=== PATIENT | female | born 1945 | race Caucasian/White ===

== ENCOUNTER 2018-02-04 10:12 | Inpatient (IN) ==
[2018-02-04] MEDS ORDERED: ALBUTEROL/IPRATROPIUM 3 ML NEB RESP TX STA (10:26)
[2018-02-04] MEDS ORDERED: LEVOFLOXACIN INJ 500 MG in PREMIX 1 EACH IV STA (10:26)
[2018-02-04] MEDS ORDERED: methylPREDNISolone SOD SUC 125 MG/2 ML VIAL IV STA (10:26)
[2018-02-04] MEDS ORDERED: ALBUTEROL 2.5 MG/3 ML NEB RESP TX SCH (10:30)
[2018-02-04] MEDS ORDERED: methylPREDNISolone SOD SUC 125 MG/2 ML VIAL ONE (10:36)
[2018-02-04 10:38] LABS: Basophils # 0.1 10*3/uL (0.0-0.2); Basophils % 0.4 % (0.0-0.8); Eosinophils # 0.1 10*3/uL (0.0-0.87); Eosinophils % 0.3 % (0.00-10.9); Hematocrit 42.1 VOL% (35.7-47.0); Hemoglobin 13.4 GM/DL (12.0-16.0); Immature Granulocytes % 0.6 %; Lymphocytes # 4.2 10*3/uL (1.4-4.0); Lymphocytes % 24.6 % (21.3-54.2); Mean Corpuscular HGB Conc 31.8 GM/DL (32-36); Mean Corpuscular Hemoglobin 32 PG (27-34); Mean Corpuscular Volume 99.1 FL (87-102); Mean Platelet Volume 10.7 FL (9.6-12.0); Neutrophils # 11.7 10*3/uL (1.4-7.4); Neutrophils % 68.1 % (38.7-73.9); Platelet Count 441 T/CUMM (130-400); Red Blood Count 4.25 MC/CUMM (3.8-5.5); Red Cell Distribution Width 12.3 % (9.3-17.3); White Blood Count 17.2 T/CUMM (4-12)
[2018-02-04 11:05] LABS: Lactic Acid 2.5 MMOL/L (0.4-2.0)
[2018-02-04 11:07] LABS: Albumin 3.1 G/DL (3.4-5.0); Bilirubin,Total 0.4 MG/DL (0.2-1.0); Calcium 8.9 MG/DL (8.5-10.1); Osmolality,Calculated 276.1 MOS/KG (273-304); Potassium 4.8 MMOL/L (3.5-5.1); Total Protein 7.3 G/DL (6.4-8.3)
[2018-02-04 11:11] LABS: Troponin I Only 0.151 NG/ML (0.00-0.045)
[2018-02-04] MEDS ORDERED: FUROSEMIDE 40 MG/4 ML VIAL IV STA (11:11)
[2018-02-04] MEDS ORDERED: LEVOFLOXACIN INJ 100 ML IV ONE (11:12)
[2018-02-04] MEDS ORDERED: FUROSEMIDE 40 MG/4 ML VIAL ONE (11:55)
[2018-02-04 12:18] LABS: ABG Base Excess -2.1 MMOL/L (-2.5-2.5); ABG HCO3 22.3 MMOL/L (20-26); ABG Oxygen Saturation 82.2 % (95-100); ABG PO2 60.7 MM HG (80-95); ABG TCO2 26.8 MMOL/L (23-27)
[2018-02-04 12:21] LABS: ABG PCO2 80.2 MM HG (35-48); ABG PH 7.173 (7.35-7.45)
[2018-02-04 12:33] LABS: Apearance,Urine Slightly Hazy (Clear); Bacteria,Urine Occasional /HPF (Few); Bilirubin,Urine Negative (Negative); Blood, Urine Small mg/dL (Negative); Glucose,Urine (UA) 50 mg/dL (Negative); Ketones,Urine 20 mg/dL (Negative); Mucus,Urine Occasional /LPF (Occasional); Nitrite,Urine Negative (Negative); Protein,Urine 30 MG/DL; RBC,Urine 3 /HPF (0-4); Squamous Epithelial Cell,Urine Occasional /HPF (0-10); Urine Color Yellow (Yellow); Urine Specific Gravity 1.014 (1.001-1.035); Urine Urobilinogen < 2.0 EU/DL (0.2-1.0); WBC,Urine <1 /HPF (0-6)
[2018-02-04] MEDS ORDERED: MORPHINE 4 MG/1 ML VIAL IV PRN (13:08)
[2018-02-04] MEDS ORDERED: ONDANSETRON 4 MG/2 ML VIAL IV PRN (13:08)
[2018-02-04] MEDS ORDERED: ALBUTEROL 2.5 MG/3 ML NEB RESP TX PRN (13:16)
[2018-02-04] MEDS ORDERED: METOPROLOL TARTRATE 5 MG/5 ML VIAL IV PRN (13:20)
[2018-02-04] MEDS: DEXTROSE 5% NACL 0.45% 1,000 ML IV SCH (14:32)
[2018-02-04] MEDS: methylPREDNISolone SOD SUC 40 MG/1 ML VIAL IV SCH ×2 (14:50→21:01)
[2018-02-04 14:53] LABS: Troponin I Only 0.215 NG/ML (0.00-0.045)
[2018-02-04] MEDS: methIMAzole 5 MG TABLET PO SCH (14:53)
[2018-02-04] MEDS: CLOPIDOGREL 75 MG TABLET PO SCH (14:54)
[2018-02-04] MEDS: PANTOPRAZOLE 40 MG VIAL IV SCH (14:54)
[2018-02-04] MEDS: BUDESONIDE/FORMOTEROL 160-4.5 INHALER 6 GM INH SCH ×2 (15:06→21:01)
[2018-02-04 15:22] LABS: Pt O2 Delivery Device BIPAP
[2018-02-04] MEDS: cefTRIAXone 2,000 MG in SYRINGE 1 EACH IV SCH (15:52)
[2018-02-04] MEDS: AZITHROMYCIN INJ 500 MG in SODIUM CHLORIDE 0.9% 250 ML IV SCH (15:57)
[2018-02-04 16:08] LABS: ABG Base Excess 3.4 MMOL/L (-2.5-2.5); ABG HCO3 30.1 MMOL/L (20-26); ABG Oxygen Saturation 90.8 % (95-100); ABG PCO2 55.5 MM HG (35-48); ABG PH 7.352 (7.35-7.45); ABG PO2 65.7 MM HG (80-95); ABG TCO2 31.8 MMOL/L (23-27)
[2018-02-04 16:52] LABS: Troponin I Only 0.248 NG/ML (0.00-0.045)
[2018-02-04] MEDS: ALBUTEROL/IPRATROPIUM 3 ML NEB RESP TX SCH (19:13)
[2018-02-04 19:39] LABS: Troponin I Only 0.19 NG/ML (0.00-0.045)
[2018-02-04] MEDS: ENOXAPARIN 40 MG/0.4 ML SYRINGE SUBCUT SCH (21:01)
[2018-02-05] MEDS: methylPREDNISolone SOD SUC 40 MG/1 ML VIAL IV SCH ×4 (02:00→23:34)
[2018-02-05] MEDS: DEXTROSE 5% NACL 0.45% 1,000 ML IV SCH (02:08)
[2018-02-05 03:56] LABS: ABG Base Excess 5.9 MMOL/L (-2.5-2.5); ABG HCO3 30.9 MMOL/L (20-26); ABG Oxygen Saturation 96.5 % (95-100); ABG PH 7.436 (7.35-7.45); ABG PO2 88.4 MM HG (80-95); ABG TCO2 32.4 MMOL/L (23-27); Allen Test Positive; Pt O2 Delivery Device CPAP
[2018-02-05 06:06] LABS: Hematocrit 32.4 VOL% (35.7-47.0); Hemoglobin 10.6 GM/DL (12.0-16.0); Immature Granulocytes % 0.4 %; Immature Granulocytes Absolute 0.02 #; Lymphocytes # 0.6 10*3/uL (1.4-4.0); Mean Corpuscular HGB Conc 32.7 GM/DL (32-36); Mean Corpuscular Hemoglobin 31 PG (27-34); Mean Corpuscular Volume 93.9 FL (87-102); Mean Platelet Volume 11.2 FL (9.6-12.0); Monocytes # 0.1 10*3/uL (0.11-0.8); Monocytes % 3.1 % (1.7-12.7); Neutrophils # 3.8 10*3/uL (1.4-7.4); Neutrophils % 82.5 % (38.7-73.9); Platelet Count 253 T/CUMM (130-400); Red Blood Count 3.45 MC/CUMM (3.8-5.5); Red Cell Distribution Width 12.1 % (9.3-17.3); White Blood Count 4.6 T/CUMM (4-12)
[2018-02-05 07:07] LABS: Albumin 2.6 G/DL (3.4-5.0); Bilirubin,Total 0.6 MG/DL (0.2-1.0); Calcium 8.2 MG/DL (8.5-10.1); Osmolality,Calculated 277.8 MOS/KG (273-304); Potassium 4.2 MMOL/L (3.5-5.1); Risk Ratio 3.13; Thyroid Stimulating Hormone 0.031 uIU/ml (0.358-3.74); Total Protein 5.8 G/DL (6.4-8.3); VLDL CHOLESTEROL 15.2 MG/DL
[2018-02-05] MEDS: ALBUTEROL/IPRATROPIUM 3 ML NEB RESP TX SCH ×4 (07:23→18:44)
[2018-02-05] MEDS ORDERED: MAGNESIUM SULF RIDER 2 GM in PREMIX 1 EACH IV ONE (07:58)
[2018-02-05] MEDS: methIMAzole 5 MG TABLET PO SCH (09:11)
[2018-02-05] MEDS: CLOPIDOGREL 75 MG TABLET PO SCH (09:11)
[2018-02-05] MEDS: BUDESONIDE/FORMOTEROL 160-4.5 INHALER 6 GM INH SCH ×2 (09:12→21:11)
[2018-02-05] MEDS: PANTOPRAZOLE 40 MG VIAL IV SCH (09:15)
[2018-02-05] MEDS ORDERED: BUDESONIDE/FORMOTEROL 160-4.5 INHALER 6 GM INH SCH (13:30)
[2018-02-05] MEDS: ESCITALOPRAM 10 MG TABLET PO SCH (13:34)
[2018-02-05] MEDS: ATENOLOL 25 MG TABLET PO SCH (13:35)
[2018-02-05] MEDS: MONTELUKAST 10 MG TABLET PO SCH (13:35)
[2018-02-05] MEDS ORDERED: CLORAZEPATE 3.75 MG TABLET PO PRN (15:52)
[2018-02-05] MEDS: cefTRIAXone 2,000 MG in SYRINGE 1 EACH IV SCH (17:50)
[2018-02-05] MEDS: AZITHROMYCIN INJ 500 MG in SODIUM CHLORIDE 0.9% 250 ML IV SCH (17:51)
[2018-02-05] MEDS: ENOXAPARIN 40 MG/0.4 ML SYRINGE SUBCUT SCH (21:11)
[2018-02-05] MEDS: PRAVASTATIN 40 MG TABLET PO SCH (21:11)
[2018-02-06] MEDS: ALBUTEROL/IPRATROPIUM 3 ML NEB RESP TX SCH ×4 (02:05→19:56)
[2018-02-06] MEDS: methylPREDNISolone SOD SUC 40 MG/1 ML VIAL IV SCH ×2 (04:12→09:23)
[2018-02-06] MEDS: ATENOLOL 25 MG TABLET PO SCH (08:28)
[2018-02-06] MEDS: methIMAzole 5 MG TABLET PO SCH (08:28)
[2018-02-06] MEDS: CLOPIDOGREL 75 MG TABLET PO SCH (08:28)
[2018-02-06] MEDS: MONTELUKAST 10 MG TABLET PO SCH (08:28)
[2018-02-06] MEDS: ESCITALOPRAM 10 MG TABLET PO SCH (08:29)
[2018-02-06] MEDS: PANTOPRAZOLE 40 MG VIAL IV SCH (08:29)
[2018-02-06] MEDS: BUDESONIDE/FORMOTEROL 160-4.5 INHALER 6 GM INH SCH ×2 (08:35→21:14)
[2018-02-06] MEDS ORDERED: MAGNESIUM SULF RIDER 4 GM in PREMIX 1 EACH IV PRN (10:48)
[2018-02-06] MEDS ORDERED: MAGNESIUM SULF RIDER 2 GM in PREMIX 1 EACH IV PRN (10:48)
[2018-02-06] MEDS ORDERED: ZINC OXIDE PASTE 113 GM TUBE TOP PRN (14:05)
[2018-02-06] MEDS ORDERED: ZALEPLON 5 MG CAPSULE PO PRN (14:31)
[2018-02-06] MEDS: cefTRIAXone 2,000 MG in SYRINGE 1 EACH IV SCH (14:49)
[2018-02-06] MEDS: predniSONE 20 MG TABLET PO SCH ×2 (14:49→21:14)
[2018-02-06] MEDS: AZITHROMYCIN INJ 500 MG in SODIUM CHLORIDE 0.9% 250 ML IV SCH (15:34)
[2018-02-06] MEDS: ENOXAPARIN 40 MG/0.4 ML SYRINGE SUBCUT SCH (21:14)
[2018-02-06] MEDS: PRAVASTATIN 40 MG TABLET PO SCH (21:14)
[2018-02-07] MEDS: ALBUTEROL/IPRATROPIUM 3 ML NEB RESP TX SCH ×4 (00:50→20:14)
[2018-02-07 05:35] LABS: Hematocrit 33.8 VOL% (35.7-47.0); Hemoglobin 10.8 GM/DL (12.0-16.0); Immature Granulocytes % 0.6 %; Immature Granulocytes Absolute 0.07 #; Lymphocytes # 0.8 10*3/uL (1.4-4.0); Lymphocytes % 7.2 % (21.3-54.2); Mean Corpuscular Hemoglobin 31 PG (27-34); Mean Corpuscular Volume 95.5 FL (87-102); Mean Platelet Volume 11.1 FL (9.6-12.0); Monocytes # 0.5 10*3/uL (0.11-0.8); Monocytes % 4.2 % (1.7-12.7); Neutrophils # 9.7 10*3/uL (1.4-7.4); Platelet Count 297 T/CUMM (130-400); Red Blood Count 3.54 MC/CUMM (3.8-5.5); Red Cell Distribution Width 12.3 % (9.3-17.3)
[2018-02-07 06:03] LABS: Calcium 8.7 MG/DL (8.5-10.1); Osmolality,Calculated 285.4 MOS/KG (273-304); Potassium 4.2 MMOL/L (3.5-5.1)
[2018-02-07] MEDS: methIMAzole 5 MG TABLET PO SCH (09:33)
[2018-02-07] MEDS: ESCITALOPRAM 10 MG TABLET PO SCH (09:34)
[2018-02-07] MEDS: MONTELUKAST 10 MG TABLET PO SCH (09:35)
[2018-02-07] MEDS: CLOPIDOGREL 75 MG TABLET PO SCH (09:35)
[2018-02-07] MEDS: ATENOLOL 25 MG TABLET PO SCH (09:35)
[2018-02-07] MEDS: predniSONE 20 MG TABLET PO SCH ×2 (09:35→20:15)
[2018-02-07] MEDS: PANTOPRAZOLE 40 MG VIAL IV SCH (09:35)
[2018-02-07] MEDS: BUDESONIDE/FORMOTEROL 160-4.5 INHALER 6 GM INH SCH ×2 (09:43→20:19)
[2018-02-07] MEDS: THEOPHYLLINE ER (24 HR) 400 MG CAPSULE PO SCH (09:46)
[2018-02-07] MEDS: cefTRIAXone 2,000 MG in SYRINGE 1 EACH IV SCH (17:30)
[2018-02-07] MEDS: AZITHROMYCIN INJ 500 MG in SODIUM CHLORIDE 0.9% 250 ML IV SCH (17:35)
[2018-02-07] MEDS: ACETAMINOPHEN 325 MG TABLET PO PRN (20:17)
[2018-02-07] MEDS: ENOXAPARIN 40 MG/0.4 ML SYRINGE SUBCUT SCH (20:18)
[2018-02-07] MEDS: PRAVASTATIN 40 MG TABLET PO SCH (20:18)
[2018-02-08] MEDS: ALBUTEROL/IPRATROPIUM 3 ML NEB RESP TX SCH ×4 (01:40→19:36)
[2018-02-08 06:58] LABS: Basophils % 0.1 % (0.0-0.8); Eosinophils % 0.1 % (0.00-10.9); Hematocrit 36.7 VOL% (35.7-47.0); Hemoglobin 11.7 GM/DL (12.0-16.0); Immature Granulocytes % 0.5 %; Immature Granulocytes Absolute 0.05 #; Lymphocytes # 2.1 10*3/uL (1.4-4.0); Lymphocytes % 18.7 % (21.3-54.2); Mean Corpuscular HGB Conc 31.9 GM/DL (32-36); Mean Corpuscular Hemoglobin 31 PG (27-34); Mean Corpuscular Volume 97.1 FL (87-102); Mean Platelet Volume 11.5 FL (9.6-12.0); Monocytes % 9.4 % (1.7-12.7); Neutrophils # 7.9 10*3/uL (1.4-7.4); Neutrophils % 71.2 % (38.7-73.9); Platelet Count 347 T/CUMM (130-400); Red Blood Count 3.78 MC/CUMM (3.8-5.5); Red Cell Distribution Width 12.2 % (9.3-17.3)
[2018-02-08 07:30] LABS: Calcium 8.9 MG/DL (8.5-10.1); Osmolality,Calculated 276.7 MOS/KG (273-304); Potassium 4.3 MMOL/L (3.5-5.1)
[2018-02-08] MEDS: ACETAMINOPHEN 325 MG TABLET PO PRN (08:34)
[2018-02-08] MEDS: MONTELUKAST 10 MG TABLET PO SCH (08:35)
[2018-02-08] MEDS: predniSONE 20 MG TABLET PO SCH (08:35)
[2018-02-08] MEDS: CLOPIDOGREL 75 MG TABLET PO SCH (08:35)
[2018-02-08] MEDS: methIMAzole 5 MG TABLET PO SCH (08:36)
[2018-02-08] MEDS: ATENOLOL 25 MG TABLET PO SCH (08:36)
[2018-02-08] MEDS: THEOPHYLLINE ER (24 HR) 400 MG CAPSULE PO SCH (08:39)
[2018-02-08] MEDS: ESCITALOPRAM 10 MG TABLET PO SCH (08:39)
[2018-02-08] MEDS: BUDESONIDE/FORMOTEROL 160-4.5 INHALER 6 GM INH SCH ×2 (08:41→20:28)
[2018-02-08] MEDS: PANTOPRAZOLE 40 MG VIAL IV SCH (08:44)
[2018-02-08] MEDS: cefTRIAXone 2,000 MG in SYRINGE 1 EACH IV SCH (15:05)
[2018-02-08] MEDS: AZITHROMYCIN INJ 500 MG in SODIUM CHLORIDE 0.9% 250 ML IV SCH (15:13)
[2018-02-08] MEDS: ENOXAPARIN 40 MG/0.4 ML SYRINGE SUBCUT SCH (20:27)
[2018-02-08] MEDS: PRAVASTATIN 40 MG TABLET PO SCH (20:27)
[2018-02-09] MEDS: ALBUTEROL/IPRATROPIUM 3 ML NEB RESP TX SCH ×4 (02:10→19:52)
[2018-02-09] MEDS: ESCITALOPRAM 10 MG TABLET PO SCH (09:02)
[2018-02-09] MEDS: predniSONE 20 MG TABLET PO SCH (09:02)
[2018-02-09] MEDS: methIMAzole 5 MG TABLET PO SCH (09:02)
[2018-02-09] MEDS: BUDESONIDE/FORMOTEROL 160-4.5 INHALER 6 GM INH SCH ×2 (09:03→20:40)
[2018-02-09] MEDS: THEOPHYLLINE ER (24 HR) 400 MG CAPSULE PO SCH (09:03)
[2018-02-09] MEDS: PANTOPRAZOLE 40 MG VIAL IV SCH (09:03)
[2018-02-09] MEDS: MONTELUKAST 10 MG TABLET PO SCH (09:03)
[2018-02-09] MEDS: CLOPIDOGREL 75 MG TABLET PO SCH (09:03)
[2018-02-09] MEDS: ATENOLOL 25 MG TABLET PO SCH (09:04)
[2018-02-09] MEDS ORDERED: ASPIRIN EC 81 MG TABLET PO SCH (11:30)
[2018-02-09] MEDS: cefTRIAXone 2,000 MG in SYRINGE 1 EACH IV SCH (15:34)
[2018-02-09] MEDS: AZITHROMYCIN INJ 500 MG in SODIUM CHLORIDE 0.9% 250 ML IV SCH (15:34)
[2018-02-09] MEDS: ACETAMINOPHEN 325 MG TABLET PO PRN (19:39)
[2018-02-09] MEDS: PRAVASTATIN 40 MG TABLET PO SCH (20:40)
[2018-02-09] MEDS: ENOXAPARIN 40 MG/0.4 ML SYRINGE SUBCUT SCH (20:40)
[2018-02-10] MEDS: ALBUTEROL/IPRATROPIUM 3 ML NEB RESP TX SCH ×4 (00:23→19:40)
[2018-02-10 05:25] LABS: Basophils % 0.1 % (0.0-0.8); Eosinophils # 0.1 10*3/uL (0.0-0.87); Eosinophils % 1.1 % (0.00-10.9); Hematocrit 32.6 VOL% (35.7-47.0); Hemoglobin 10.3 GM/DL (12.0-16.0); Immature Granulocytes % 0.9 %; Immature Granulocytes Absolute 0.08 #; Lymphocytes # 2.4 10*3/uL (1.4-4.0); Lymphocytes % 26.7 % (21.3-54.2); Mean Corpuscular HGB Conc 31.6 GM/DL (32-36); Mean Corpuscular Hemoglobin 31 PG (27-34); Mean Corpuscular Volume 96.7 FL (87-102); Mean Platelet Volume 11.4 FL (9.6-12.0); Monocytes # 0.8 10*3/uL (0.11-0.8); Monocytes % 8.8 % (1.7-12.7); Neutrophils # 5.6 10*3/uL (1.4-7.4); Neutrophils % 62.4 % (38.7-73.9); Platelet Count 329 T/CUMM (130-400); Red Blood Count 3.37 MC/CUMM (3.8-5.5); Red Cell Distribution Width 12.1 % (9.3-17.3)
[2018-02-10 05:50] LABS: Calcium 8.5 MG/DL (8.5-10.1); Osmolality,Calculated 280.3 MOS/KG (273-304)
[2018-02-10] MEDS: MONTELUKAST 10 MG TABLET PO SCH (08:59)
[2018-02-10] MEDS: THEOPHYLLINE ER (24 HR) 400 MG CAPSULE PO SCH (08:59)
[2018-02-10] MEDS: predniSONE 20 MG TABLET PO SCH (09:00)
[2018-02-10] MEDS: ESCITALOPRAM 10 MG TABLET PO SCH (09:00)
[2018-02-10] MEDS: methIMAzole 5 MG TABLET PO SCH (09:00)
[2018-02-10] MEDS: PANTOPRAZOLE 40 MG VIAL IV SCH (09:00)
[2018-02-10] MEDS: CLOPIDOGREL 75 MG TABLET PO SCH (09:00)
[2018-02-10] MEDS: ATENOLOL 25 MG TABLET PO SCH (09:01)
[2018-02-10] MEDS: BUDESONIDE/FORMOTEROL 160-4.5 INHALER 6 GM INH SCH ×2 (09:01→22:01)
[2018-02-10] MEDS: cefTRIAXone 2,000 MG in SYRINGE 1 EACH IV SCH (14:53)
[2018-02-10] MEDS: AZITHROMYCIN INJ 500 MG in SODIUM CHLORIDE 0.9% 250 ML IV SCH (16:45)
[2018-02-10] MEDS: PRAVASTATIN 40 MG TABLET PO SCH (22:00)
[2018-02-10] MEDS: ENOXAPARIN 40 MG/0.4 ML SYRINGE SUBCUT SCH (22:00)
[2018-02-11] MEDS: ALBUTEROL/IPRATROPIUM 3 ML NEB RESP TX SCH ×4 (00:28→19:19)
[2018-02-11] MEDS: PANTOPRAZOLE 40 MG VIAL IV SCH (08:24)
[2018-02-11] MEDS: MONTELUKAST 10 MG TABLET PO SCH (08:24)
[2018-02-11] MEDS: methIMAzole 5 MG TABLET PO SCH (08:24)
[2018-02-11] MEDS: THEOPHYLLINE ER (24 HR) 400 MG CAPSULE PO SCH (08:24)
[2018-02-11] MEDS: CLOPIDOGREL 75 MG TABLET PO SCH (08:24)
[2018-02-11] MEDS: ATENOLOL 25 MG TABLET PO SCH (08:25)
[2018-02-11] MEDS: ESCITALOPRAM 10 MG TABLET PO SCH (08:25)
[2018-02-11] MEDS: BUDESONIDE/FORMOTEROL 160-4.5 INHALER 6 GM INH SCH ×2 (08:25→21:25)
[2018-02-11] MEDS: predniSONE 20 MG TABLET PO SCH (08:25)
[2018-02-11] MEDS: cefTRIAXone 2,000 MG in SYRINGE 1 EACH IV SCH (14:21)
[2018-02-11] MEDS: AZITHROMYCIN INJ 500 MG in SODIUM CHLORIDE 0.9% 250 ML IV SCH (16:19)
[2018-02-11] MEDS: ENOXAPARIN 40 MG/0.4 ML SYRINGE SUBCUT SCH (21:25)
[2018-02-11] MEDS: PRAVASTATIN 40 MG TABLET PO SCH (21:25)
[2018-02-12] MEDS: ALBUTEROL/IPRATROPIUM 3 ML NEB RESP TX SCH ×3 (00:02→13:58)
[2018-02-12] MEDS ORDERED: BISACODYL 5 MG TABLET PO ONE (07:59)
[2018-02-12] MEDS: PANTOPRAZOLE 40 MG VIAL IV SCH (08:57)
[2018-02-12] MEDS: methIMAzole 5 MG TABLET PO SCH (08:57)
[2018-02-12] MEDS: CLOPIDOGREL 75 MG TABLET PO SCH (08:57)
[2018-02-12] MEDS: ATENOLOL 25 MG TABLET PO SCH (08:58)
[2018-02-12] MEDS: THEOPHYLLINE ER (24 HR) 400 MG CAPSULE PO SCH (08:58)
[2018-02-12] MEDS: BUDESONIDE/FORMOTEROL 160-4.5 INHALER 6 GM INH SCH (08:58)
[2018-02-12] MEDS: MONTELUKAST 10 MG TABLET PO SCH (08:58)
[2018-02-12] MEDS: predniSONE 20 MG TABLET PO SCH (08:58)
[2018-02-12] MEDS: ESCITALOPRAM 10 MG TABLET PO SCH (08:58)
[2018-02-12 11:20] VITALS: BP 119/64
[2018-02-12] MEDS: cefTRIAXone 2,000 MG in SYRINGE 1 EACH IV SCH (15:10)
== END 2018-02-12 15:29 | disposition home or self-care (01) | DRG 189 ==
LOC: EDUNIT# → EDBD → N.ED 10:12 → N.EDINP 13:08 → SUATTDRO 13:08 → N.ICU 13:46 → N.TELES 02-05 14:50 → N.5E 02-07 14:03
PROVIDERS: ADMIT Internal Medicine Infectious Disease; ATTEND Internal Medicine

== ENCOUNTER 2022-12-28 05:57 | Observation (INO) ==
[2022-12-28] MEDS ORDERED: POTASSIUM CHLORIDE RIDER 10 MEQ/100 ML PREMIX IV PRN (05:58)
[2022-12-28] MEDS ORDERED: ASPIRIN 325 MG TABLET PO ONE (05:58)
[2022-12-28] MEDS ORDERED: MAGNESIUM SULF RIDER 2 GM/50 ML PREMIX IV PRN (05:58)
[2022-12-28] MEDS ORDERED: diphenhydrAMINE CAP 50 MG CAPSULE PO ONE (05:58)
[2022-12-28] MEDS ORDERED: DIAZEPAM 5 MG TABLET PO ONE (05:58)
[2022-12-28 06:31] VITALS: BP 155/83
[2022-12-28] MEDS ORDERED: DIAZEPAM 5 MG TABLET ONE (06:56)
[2022-12-28] MEDS ORDERED: diphenhydrAMINE CAP 50 MG CAPSULE ONE (06:56)
[2022-12-28] MEDS ORDERED: ASPIRIN 325 MG TABLET ONE (06:56)
[2022-12-28] MEDS: SODIUM CHLORIDE 0.9% 1,000 ML IV SCH ×2 (06:58→17:36)
[2022-12-28 07:07] LABS: Basophils # 0.1 10*3/uL (0.0-0.2); Basophils % 1.1 % (0.0-0.8); Eosinophils # 0.1 10*3/uL (0.0-0.87); Eosinophils % 1.8 % (0.00-10.9); Hemoglobin 13.5 GM/DL (12.0-16.0); Immature Granulocytes % 0.5 %; Immature Granulocytes Absolute 0.04 #; Lymphocytes # 1.8 10*3/uL (1.4-4.0); Lymphocytes % 22.2 % (21.3-54.2); Mean Corpuscular HGB Conc 30.7 GM/DL (32-36); Mean Corpuscular Volume 99.1 FL (87-102); Mean Platelet Volume 10.7 FL (9.6-12.0); Monocytes # 0.7 10*3/uL (0.11-0.8); Monocytes % 8.3 % (1.7-12.7); Neutrophils % 66.1 % (38.7-73.9); Platelet Count 273 T/CUMM (130-400); Red Blood Count 4.44 MC/CUMM (3.8-5.5); Red Cell Distribution Width 13.2 % (9.3-17.3); White Blood Count 7.93 T/CUMM (4-12)
[2022-12-28 07:17] LABS: PT Patient Result 10.9 SECS (10.1-12.1)
[2022-12-28 07:30] LABS: Alanine Aminotransferase 17 U/L (13-56); Albumin 3.5 G/DL (3.4-5.0); Alkaline Phosphatase 77 U/L (45-117); Aspartate Amino Transferase 18 U/L (0-37); Bilirubin,Total < 0.39 MG/DL (0.20-1.00); Blood Urea Nitrogen 16 MG/DL (7-18); Calcium 9.3 MG/DL (8.5-10.1); Carbon Dioxide 32 MMOL/L (21-32); Chloride 104 MMOL/L (98-107); Glucose 96 MG/DL (74-106); Osmolality,Calculated 283.1 MOS/KG (273-304); Sodium 142 MMOL/L (136-145); Total Protein 6.7 G/DL (6.4-8.2)
[2022-12-28] MEDS ORDERED: HEPARIN/NACL 0.9% 2 UNITS/ML 2,000 UNIT/1,000 ML BAG IV ONE (07:43)
[2022-12-28] MEDS ORDERED: fentaNYL 100 MCG/2 ML VIAL ONE ×2 (08:14→11:07)
[2022-12-28] MEDS ORDERED: MIDAZOLAM 2 MG/2 ML VIAL ONE ×3 (08:14→10:53)
[2022-12-28] MEDS ORDERED: BIVALIRUDIN 250 MG VIAL IV ONE ×2 (09:07→11:51)
[2022-12-28] MEDS ORDERED: HEPARIN/NACL 0.9% 2 UNITS/ML 1,000 UNIT/500 ML BAG IV ONE ×3 (09:25→12:47)
[2022-12-28] MEDS ORDERED: VERAPAMIL 5 MG/2 ML VIAL ONE ×2 (10:50→11:28)
[2022-12-28] MEDS ORDERED: NITROGLYCERIN DRIP 50 MG/250 ML BOTTLE IV ONE (10:50)
[2022-12-28] MEDS ORDERED: CLOPIDOGREL 300 MG TABLET ONE (13:19)
[2022-12-28] MEDS ORDERED: MORPHINE 2 MG/1 ML SYRINGE IV PRN (13:41)
[2022-12-28] MEDS ORDERED: NITROGLYCERIN SL 0.4 MG TABLET SL PRN (13:41)
[2022-12-28] MEDS ORDERED: ONDANSETRON 4 MG/2 ML VIAL IV PRN (13:41)
[2022-12-28] MEDS ORDERED: ACETAMINOPHEN 325 MG TABLET PO PRN (13:41)
[2022-12-28] MEDS ORDERED: ACETAMINOPHEN/CODEINE 300-30 MG TABLET PO PRN (13:41)
[2022-12-28] MEDS ORDERED: ZALEPLON 5 MG CAPSULE PO PRN (13:41)
[2022-12-28] MEDS ORDERED: ALBUTEROL 2.5 MG/3 ML NEB RESP TX PRN (14:10)
[2022-12-28 14:31] LABS: Bacteria,Urine Occasional /HPF (Few); Protein,Urine Negative (Negative); RBC,Urine 1 /HPF (0-4); Squamous Epithelial Cell,Urine Occasional /HPF (0-10); Urine Appearance Clear (Clear); Urine Color Yellow (Yellow); Urine pH 6.5 (4.5-8.0)
[2022-12-28 14:32] LABS: Bilirubin,Urine Negative (Negative); Blood, Urine Negative (Negative); Glucose,Urine (UA) Negative (Negative); Ketones,Urine Negative (Negative); Nitrite,Urine Positive (Negative); Urine Urobilinogen 0.2 eU/dL (<2.0)
[2022-12-28] MEDS: NON-FORMULARY MEDICATION BOTH NARES SCH ×2 (14:50→20:50)
[2022-12-28] MEDS ORDERED: IPRATROPIUM 0.06% NASAL SPRAY 15 ML BOTTLE BOTH NARES SCH (15:00)
[2022-12-28] MEDS ORDERED: SIMVASTATIN 20 MG TABLET PO SCH (21:00)
[2022-12-29] MEDS: SODIUM CHLORIDE 0.9% 1,000 ML IV SCH (04:41)
[2022-12-29 05:20] LABS: Basophils # 0.1 10*3/uL (0.0-0.2); Basophils % 0.7 % (0.0-0.8); Eosinophils # 0.1 10*3/uL (0.0-0.87); Eosinophils % 1.3 % (0.00-10.9); Hematocrit 34.8 VOL% (35.7-47.0); Hemoglobin 10.7 GM/DL (12.0-16.0); Immature Granulocytes % 0.4 %; Immature Granulocytes Absolute 0.03 #; Lymphocytes # 1.6 10*3/uL (1.4-4.0); Lymphocytes % 21.3 % (21.3-54.2); Mean Corpuscular HGB Conc 30.7 GM/DL (32-36); Mean Corpuscular Volume 100.3 FL (87-102); Mean Platelet Volume 11.2 FL (9.6-12.0); Monocytes # 0.8 10*3/uL (0.11-0.8); Monocytes % 10.1 % (1.7-12.7); Neutrophils % 66.2 % (38.7-73.9); Platelet Count 183 T/CUMM (130-400); Red Blood Count 3.47 MC/CUMM (3.8-5.5); Red Cell Distribution Width 13.2 % (9.3-17.3); White Blood Count 7.59 T/CUMM (4-12)
[2022-12-29 05:38] LABS: Calcium 8.1 MG/DL (8.5-10.1); Osmolality,Calculated 274.5 MOS/KG (273-304); Risk Ratio 1.79; VLDL Cholesterol 12.2 MG/DL
[2022-12-29] MEDS ORDERED: CLOPIDOGREL 75 MG TABLET PO SCH (09:00)
[2022-12-29] MEDS ORDERED: ESCITALOPRAM 10 MG TABLET PO SCH (09:00)
[2022-12-29] MEDS ORDERED: THEOPHYLLINE ER (24 HR) 400 MG CAPSULE PO SCH (09:00)
[2022-12-29] MEDS ORDERED: amLODIPine 2.5 MG TABLET PO SCH (09:00)
[2022-12-29] MEDS ORDERED: atenoloL 25 MG TABLET PO SCH (09:00)
[2022-12-29] MEDS ORDERED: MONTELUKAST 10 MG TABLET PO SCH (09:00)
[2022-12-29] MEDS ORDERED: CHOLECALCIFEROL 5,000 UNIT TABLET PO SCH (09:00)
[2022-12-29] MEDS ORDERED: methIMAzole 5 MG TABLET PO SCH (09:00)
[2022-12-29] MEDS ORDERED: ASPIRIN EC 81 MG TABLET PO SCH (09:00)
[2022-12-29] MEDS ORDERED: IPRATROPIUM 0.06% NASAL SPRAY 15 ML BOTTLE BOTH NARES SCH (09:00)
[2022-12-29] MEDS: NON-FORMULARY MEDICATION BOTH NARES SCH (09:22)
[2022-12-29] MEDS ORDERED: SULFAMETHOX/TRIMETHOPRIM 800-160 MG TABLET PO SCH (11:00)
[2022-12-29 13:12] LABS: Basophils # 0.1 10*3/uL (0.0-0.2); Basophils % 0.6 % (0.0-0.8); Eosinophils # 0.1 10*3/uL (0.0-0.87); Eosinophils % 1.3 % (0.00-10.9); Hematocrit 36.4 VOL% (35.7-47.0); Hemoglobin 11.3 GM/DL (12.0-16.0); Immature Granulocytes % 0.5 %; Immature Granulocytes Absolute 0.05 #; Lymphocytes # 1.5 10*3/uL (1.4-4.0); Lymphocytes % 14.3 % (21.3-54.2); Mean Platelet Volume 11.1 FL (9.6-12.0); Monocytes % 9.4 % (1.7-12.7); Neutrophils % 73.9 % (38.7-73.9); Platelet Count 225 T/CUMM (130-400); Red Blood Count 3.64 MC/CUMM (3.8-5.5); Red Cell Distribution Width 13.1 % (9.3-17.3); White Blood Count 10.37 T/CUMM (4-12)
== END 2022-12-29 15:12 | disposition home or self-care (01) ==
LOC: N.CL 05:57 → N.ICU 05:57 → N.CL 06:00 → EDSDCBED 13:42 → N.ICU 13:42 → N.CL 12-29 15:12 → UNDODEPSDC 12-30 01:41
PROVIDERS: ADMIT Internal Medicine Cardiovascular Disease; ATTEND Internal Medicine Cardiovascular Disease